=== PATIENT | female | born 1990 | race Asian ===

== ENCOUNTER 2020-09-18 22:48 | Inpatient (IN) | payer MEDICAID ==
[~2020-09-18] VITALS: Ht 157.5 cm; Wt 50.8 kg
[2020-09-19] MEDS ORDERED: LORazepam 2 MG TABLET PO PRN (03:30)
[2020-09-19] MEDS ORDERED: OLANZapine 5 MG RAPDIS TABLET PO PRN (03:30)
[2020-09-19 05:00] VITALS: BP 140/72
[2020-09-19] MEDS ORDERED: DOCUSATE SODIUM 100 MG CAPSULE PO PRN (08:00)
[2020-09-19] MEDS ORDERED: MAG HYDROX/AL HYDROX/SIMETH ES 30 ML SUSPENSION UDCUP PO PRN (08:00)
[2020-09-19] MEDS ORDERED: GuaiFENesin/D-METHORPHAN [SUGAR-FREE] 200-20MG/10 ML SYRUP UDCUP PO PRN (08:00)
[2020-09-19] MEDS ORDERED: ONDANSETRON HCL 4 MG TABLET PO PRN (08:00)
[2020-09-19] MEDS ORDERED: IBUPROFEN 400 MG TABLET PO PRN (08:00)
[2020-09-19] MEDS ORDERED: NICOTINE 14 MG/24 HOUR PATCH TD PRN (08:00)
[2020-09-19] MEDS ORDERED: ALBUTEROL SULFATE HFA 90 MCG/PUFF 8 GM INHALER IH PRN (08:00)
[2020-09-19] MEDS ORDERED: LOPERAMIDE HCL 2 MG CAPSULE PO PRN (08:00)
[2020-09-19] MEDS ORDERED: ACETAMINOPHEN 325 MG TABLET PO PRN (08:00)
[2020-09-19] MEDS ORDERED: CloNIDine HCL 0.1 MG TABLET PO PRN (08:00)
[2020-09-19] MEDS ORDERED: PETROLATUM,WHITE 28 GM JELLY TP PRN (08:00)
[2020-09-19] MEDS ORDERED: MAGNESIUM HYDROXIDE SUSPENSION 30 ML UDCUP PO PRN (08:00)
[2020-09-19] MEDS: ARIPiprazole 5 MG TABLET PO SCH (13:12)
[2020-09-19 16:25] VITALS: BP 104/72
[2020-09-20 01:27] VITALS: BP 106/60
[2020-09-20 08:06] VITALS: BP 115/71
[2020-09-20] MEDS: ARIPiprazole 5 MG TABLET PO SCH (08:09)
[2020-09-20 20:05] VITALS: BP 120/76
[2020-09-21 00:33] VITALS: BP 102/68
[2020-09-21 08:20] VITALS: BP 132/82
[2020-09-21] MEDS: ARIPiprazole 5 MG TABLET PO SCH (08:42)
[2020-09-21] MEDS ORDERED: ARIP5TAB37 PO (08:49)
== END 2020-09-21 13:45 | disposition home or self-care (01) | DRG 751 ==
LOC: B3A 09-19 01:50 → B2S 09-20 16:00
DX: F33.3 Major depressive disorder, recurrent, severe with psychotic symptoms (principal); E44.0 Moderate protein-calorie malnutrition; F12.10 Cannabis abuse, uncomplicated; Z68.20 Body mass index [BMI] 20.0-20.9, adult; F10.10 Alcohol abuse, uncomplicated; Z79.899 Other long term (current) drug therapy
CPT/HCPCS: Z7610